=== PATIENT | female | born 1950 | race Caucasian/White ===

== ENCOUNTER 2017-02-28 08:09 | Inpatient (IN) | payer MEDICARE ==
[~2017-02-28] VITALS: Ht 154.9 cm; Wt 75.1 kg
[2017-02-28] MEDS ORDERED: PRIM50TA5 PO (08:56)
[2017-02-28] MEDS ORDERED: FLUO20CA4 PO (08:56)
[2017-02-28] MEDS ORDERED: ATEN25TA PO (08:56)
[2017-02-28] MEDS ORDERED: LOSA50TA PO (08:56)
[2017-02-28] MEDS ORDERED: ALPR0.25 PO (08:56)
[2017-02-28] MEDS ORDERED: MULT1TAB84 PO (09:00)
[2017-02-28] MEDS ORDERED: VITA10002 PO (09:00)
[2017-02-28] MEDS ORDERED: CALTTAB PO (09:00)
[2017-02-28] MEDS ORDERED: ACET-703 PO (09:01)
[2017-03-10] MEDS ORDERED: CHLORHEXIDINE GLUCONATE 4% SOLN 120 ML BTL TOPICAL SCH (08:30)
[2017-03-10] MEDS ORDERED: CHLORHEXIDINE GLUCONATE 2 % 1 PACK (2 CLOTHS) TOPICAL PRN (08:30)
[2017-03-10] MEDS ORDERED: POVIDONE IODINE 5% (ANTISEPSIS KIT) 4 APPLICATIONS EACH NARE PRN (08:30)
[2017-03-10] MEDS ORDERED: LACTATED RINGER'S 1000 ML IV PRN (08:30)
[2017-03-10] MEDS ORDERED: METOPROLOL TARTRATE 25 MG TAB PO PRN (08:30)
[2017-03-10] MEDS ORDERED: SODIUM CHLORID 0.9% 500 ML IV PRN (08:30)
[2017-03-10] MEDS ORDERED: INSULIN HUMAN REGULAR 1,000 UNITS/10 ML VIAL SQ PRN (08:30)
[2017-03-10] MEDS ORDERED: ceFAZolin 2 GM PREMIX 50 ML IV SCH (08:30)
[2017-03-10 08:49] VITALS: BP 165/87; PULSE 61; RESP 20; TEMP 98.3; O2SAT 98
[2017-03-10] MEDS ORDERED: SODIUM CHLORIDE 0.9% IV SCH ×2 (09:00→12:00)
[2017-03-10] MEDS ORDERED: TRANEXAMIC ACID IV SCH ×2 (09:00→12:00)
[2017-03-10] MEDS ORDERED: EXPAREL PERI-ARTICULAR INJECTION (TOTAL VOL. 100 ML) P-ARTICULR SCH ×2 (09:00)
[2017-03-10] MEDS ORDERED: LACTATED RINGER'S 1000 ML INJ 1,000 ML IV ONE (09:02)
[2017-03-10] MEDS ORDERED: PROPOFOL 200 MG/20 ML AMP IV ONE (09:02)
[2017-03-10] MEDS ORDERED: ONDANSETRON HCL 4 MG/2 ML VIAL IV PUSH ONE (09:02)
[2017-03-10] MEDS ORDERED: ZOLPIDEM TARTRATE 5 MG TAB PO PRN (10:00)
[2017-03-10] MEDS ORDERED: SODIUM CHLORIDE 0.9% FLUSH 5 ML FLUSH IVF PRN (10:00)
[2017-03-10] MEDS ORDERED: ACETAMINOPHEN/HYDROcodone 325 MG/7.5 MG TAB PO PRN (10:00)
[2017-03-10] MEDS ORDERED: Post-op Orders (for Pharmacy) MISC XX ONE (10:00)
[2017-03-10] MEDS ORDERED: MORPHINE SULFATE 4 MG/ML INJ IV PUSH PRN (10:00)
[2017-03-10] MEDS ORDERED: TRANEXAMIC ACID INJ 0 MG in SODIUM CHLORIDE 0.9% INJ 100 ML IV SCH (10:00)
[2017-03-10] MEDS ORDERED: MIDAZOLAM HCL 2 MG/2 ML VIAL ONE (10:01)
[2017-03-10] MEDS ORDERED: ACETAMINOPHEN 1000 MG/100 ML VIAL IV ONE (10:01)
[2017-03-10] MEDS ORDERED: DEXAMETHASONE SOD PHOS 4 MG/ML VIAL ONE (10:01)
[2017-03-10] MEDS ORDERED: FAMOTIDINE 20 MG/2 ML VIAL ONE (10:01)
[2017-03-10] MEDS ORDERED: GENTAMICIN SULFATE 80 MG/2 ML VIAL IRRIGATION ONE (11:26)
[2017-03-10] MEDS ORDERED: BUPIVACAINE HCL PF 0.5% 30 ML VIAL NERV BLOCK ONE (12:54)
[2017-03-10] MEDS ORDERED: DO NOT ADM ANY ANTICOAGULANT DRUGS PRN (13:21)
[2017-03-10] MEDS: LACTATED RINGER'S 1000 ML INJ 1,000 ML IV SCH ×2 (13:44→22:18)
--- NOTE | 2017-03-10 13:44 | RADRPT ---
EXAM DATE/TIME: 03/10/2017 14:29 [place] COMPARISON: No previous studies available for comparison. INDICATIONS : Post op knee surgery MEDICAL HISTORY : None. SURGICAL HISTORY : None. ENCOUNTER: Initial ACUITY: 1 day PAIN SCORE: Non-responsive. LOCATION: Left knee FINDINGS: Left total knee arthroplasty has been performed. The tibial and femoral components appear well seated . Surgical drains and subcutaneous emphysema identified. CONCLUSION: Postoperative changes are noted left total knee arthroplasty. Benji Wilson MD on March 10, 2017 at 13:42 Board Certified Radiologist. This report was verified electronically.
--- NOTE | 2017-03-10 13:59 | PD.CONS ---
HPI Service [facility] Consult Requested By Reason for Consult medical management Primary Care Physician José Bennett MD Diagnoses: History of Present Illness patient is a 66 y/o female with history osteoarthritis, hypertension and anxiety who underwent left total knee arthroplasty today. at the time of my evaluation she was resting comfortably with no distress. she was complaining of mild pain to the left knee- otherwise she denies any other complaints. Review of Systems Constitutional: DENIES: Fever, Weight loss, Chills, Night Sweats Eyes: DENIES: Blurred vision, Diplopia, Vision loss, Double Vision Ears, nose, mouth, throat: DENIES: Tinnitus, Vertigo, Throat pain, Epistaxis Respiratory: DENIES: Apneas, Cough, Snoring, Wheezing, Hemoptysis, Sputum production, Shortness of breath Cardiovascular: DENIES: Chest pain, Palpitations, Syncope, Dyspnea on Exertion , PND, Lower Extremity Edema, Orthopnea, Claudication Gastrointestinal: DENIES: Abdominal pain, Black stools, Bloody stools, Constipation, Diarrhea, Nausea, Vomiting, Difficulty Swallowing, Anorexia Genitourinary: DENIES: Urinary frequency, Urgency, Hematuria, Dysuria Musculoskeletal: COMPLAINS OF: Joint pain (left knee), DENIES: Muscle aches, Stiffness, Joint Swelling Integumentary: DENIES: Rash Neurologic: DENIES: Abnormal gait, Headache, Localized weakness, Paresthesias, Seizures, Speech Problems, Tremor, Poor Balance Psychiatric: DENIES: Anxiety, Confusion, Mood changes, Depression, Hallucinations, Agitation, Suicidal Ideation, Homicidal Ideation, Delusions Past Family Social History Allergies: Coded Allergies: Aspirin (Verified Allergy, Severe, VOMITING, 03/10/17) Macrobid (Verified Allergy, Severe, hallucinations, 03/10/17) HMG-CoA Reductase Inhibitors (Verified Adverse Reaction, Severe, MUSCLE PAIN, 03/10/17) Past Medical History hypertension osteoarthritis anxiety Past Surgical History arthroscopy back surgery cholecystectomy Reported Medications losartan atenolol fluxoetine primidone calcium/ vitamin D via. B12 Active Ordered Medications Current Medications Lactated Ringer's 1,000 ml @ 30 mls/hr Q24H PRN IV SEE LABEL COMMENTS Last administered on 03/10/17t 08:45; Start 03/10/17 at 08:30; Stop 03/13/17 at 08:29 Sodium Chloride (NS 500 ml Inj) 500 ml @ 30 mls/hr [id number] PRN IV SEE LABEL COMMENTS; Start 03/10/17 at 08:30; Stop 03/13/17 at 08:29 Metoprolol Tartrate (Lopressor) 25 mg RED HAT OPEN STACK ADMINISTRATOR PRN PO SEE LABEL COMMENTS; Start 03/10/17 at 08:30; Stop 03/13/17 at 08:29 Povidone Iodine (Betadine 5% Antisepsis Kit) 1 applic RED HAT OPEN STACK ADMINISTRATOR PRN EACH NARE SEE LABEL COMMENTS Last administered on 03/10/17 08:50; Start 03/10/17 at 08:30 ; Stop 03/13/17 at 08:29 Chlorhexidine Gluconate (Chlorhexidine 2% Cloth) 3 pack RED HAT OPEN STACK ADMINISTRATOR PRN TOPICAL SEE LABEL COMMENTS; Start 03/10/17 at 08:30; Stop 03/13/17 at 08:29 Insulin Human Regular (NovoLIN R INJ) See Protocol Table ... RED HAT OPEN STACK ADMINISTRATOR PRN SQ SEE PROTOCOL TABLE; Start 03/10/17 at 08:30; Stop 03/13/17 at 08:29 Chlorhexidine Gluconate 1 applic 1 applic ONCE TOPICAL Last administered on 08:30; Start 03/10/17 at 08:30; Stop 03/13/17 at 08:29 Cefazolin Sodium/ Dextrose 50 ml @ 100 mls/hr RED HAT OPEN STACK ADMINISTRATOR IV Last administered on 03/10/17 10:43; Start 03/10/17 at 08:30; Stop 03/13/17 at 08:29 Tranexamic Acid 751 mg/Sodium Chloride 107.51 ml @ 200 mls/ hr ONCE IV Last administered on 03/10/17 10:44; Start 03/10/17 at 09:00; Stop 03/10/17 at 12:00 ; Status DC Tranexamic Acid 751 mg/Sodium Chloride 107.51 ml @ 200 mls/ hr ONCE IV ; Start 03/10/17 at 12:00; Stop 03/10/17 at 18:00 Bupivacaine Liposome 20 ml/ Sodium Chloride 100 ml @ 200 mls/hr ONCE P- ARTICULR Last administered on 03/10/17 11:00; Start 03/10/17 at 09:00; Stop at 12:00; Status DC Lactated Ringer's (Lr 1000 ml Inj) 1,000 ml @ 80 mls/hr [id number] IV ; Start 09/16 at 09:48 IV Flush (NS Flush) 2 ml UNSCH PRN IVF FLUSH AFTER USING IV ACCESS; Start 03/10 at 10:00 IV Flush 2 ml 2 ml BID IVF ; Start 03/10/17 at 21:00 Cefazolin Sodium/ Sodium Chloride (Ancef Inj/NS Inj) 100 ml @ 200 mls/hr Q6H IV ; Start 03/10/17 at 16:00; Stop 03/11/17 at 04:29 Miscellaneous Information (Post-op Orders (for Pharmacy)) STAT ONCE XX ; Start 03/10/17 at 10:00; Stop 03/10/17 at 13:45; Status DC Rivaroxaban (Xarelto) 10 mg Q24H PO ; Start 03/11/17 at 12:15 Morphine Sulfate (Morphine Inj) 4 mg Q3H PRN IV PUSH BREAKTHROUGH PAIN; Start 03/10/17 at 10:00 Acetaminophen/ Hydrocodone Bitart ([place] 7.5-325 Mg) 1 tab Q4H PRN PO PAIN LESS THAN 5 ON SCALE; Start 03/10/17 at 10:00 Acetaminophen/ Hydrocodone Bitart ([place] 7.5-325 Mg) 2 tab Q4H PRN PO PAIN SCALE 5 TO 10; Start 03/10/17 at 10:00 Ketorolac Tromethamine 15 mg 15 mg Q6H IVP ; Start 03/10/17 at 10:00; Stop 03/12 at 04:01; Status UNV Tranexamic Acid/ Sodium Chloride (Cyklokapron Inj/ NS Inj) 100 ml @ 200 mls/hr UNSCH IV ; Start 03/10/17 at 10:00; Stop 03/10/17 at 10:09; Status DC Ondansetron HCl (Zofran Inj) 4 mg Q6H PRN IVP NAUSEA OR VOMITING; Start at 10:00 Docusate Sodium (Colace) 100 mg BID PO ; Start 03/11/17 at 21:00 Zolpidem Tartrate (Ambien) 5 mg HS PRN PO SLEEP; Start 03/10/17 at 10:00 Magnesium Hydroxide (Milk Of Magnesia Liq) 30 ml DAILY PRN PO CONSTIPATION; Start 03/10/17 at 10:00 Famotidine (Pepcid Inj) 20 mg STK-MED ONCE .ROUTE ; Start 03/10/17 at 10:01; Stop 03/10/17 at 10:02; Status DC Midazolam HCl (Versed Inj) 2 mg STK-MED ONCE .ROUTE ; Start 03/10/17 at 10:01; Stop 03/10/17 at 10:02; Status DC Dexamethasone Sodium Phosphate (Decadron Inj) 4 mg STK-MED ONCE .ROUTE ; Start 03/10/17 at 10:01; Stop 03/10/17 at 10:02; Status DC Acetaminophen (Ofirmev Inj) 1,000 mg STK-MED ONCE IV ; Start 03/10/17 at 10:01; Stop 03/10/17 at 10:02; Status DC Gentamicin Sulfate (Gentamicin Inj) 240 mg STK-MED ONCE IRRIGATION Last administered on 03/10/17t 11:26; Start 03/10/17 at 11:26; Stop 03/10/17 at 11:29 ; Status DC Family History not relevant to this consult. Social History smokes a few cigarettes a day- doesn't drink. Physical Exam Vital Signs Vital Signs Date Time Temp Pulse Resp B/P Pulse Ox O2 Delivery O2 Flow Rate FiO2 03/10/17 08:49 98.3 61 20 165/87 98 Physical Exam GENERAL: This is a well-nourished, well-developed patient, in no apparent distress. SKIN: No rashes, ecchymoses or lesions. Cool and dry. HEAD: Atraumatic. Normocephalic. No temporal or scalp tenderness. EYES: Pupils equal round and reactive. Extraocular motions intact. No scleral icterus. No injection or drainage. ENT: Nose without bleeding, purulent drainage or septal hematoma. Throat without erythema, tonsillar hypertrophy or exudate. Uvula midline. Airway patent. NECK: Trachea midline. No JVD or lymphadenopathy. Supple, nontender, no meningeal signs. CARDIOVASCULAR: Regular rate and rhythm without murmurs, gallops, or rubs. RESPIRATORY: Clear to auscultation. Breath sounds equal bilaterally. No wheezes , rales, or rhonchi. GASTROINTESTINAL: Abdomen soft, non-tender, nondistended. No hepato-splenomegaly , or palpable masses. No guarding. MUSCULOSKELETAL: left leg covered with clean dressing. NEUROLOGICAL: Awake and alert. Cranial nerves II through XII intact. Motor and sensory grossly within normal limits. Five out of 5 muscle strength in all muscle groups. Normal speech. Laboratory Laboratory Tests Test 03/10/17 08:36 Blood Type O POSITIVE Antibody Screen NEGATIVE Blood Bank Comment Assessment and Plan Assessment and Plan A/P - osteoarthritis- s/p left total knee arthroplasty continue with pain control and PT- management per ortho -hypertension; resume home meds- Vasotec as needed -anxiety; resume home meds -DVT prophylaxis with xarelto- per ortho thank you for the consult. Discussed Condition With the patient and RN. Flako Frye MD Mar 10, 2017 13:59
[2017-03-10] MEDS ORDERED: ENALAPRILAT 1.25 MG/ML VIAL IV PUSH PRN (14:00)
[2017-03-10] MEDS ORDERED: ALPRAZolam 0.25 MG TAB PO PRN (14:00)
[2017-03-10] MEDS: KETOROLAC TROMETHAMINE 30 MG/ML (IVP) VIAL IVP SCH ×2 (14:00→20:42)
[2017-03-10] MEDS: ACETAMINOPHEN/HYDROcodone 325 MG/7.5 MG TAB PO PRN ×2 (14:58→21:42)
[2017-03-10] MEDS ORDERED: PILL SPLITTER OTHER PRN (15:00)
[2017-03-10 15:05] VITALS: BP 188/91; PULSE 60; RESP 18; TEMP 96.1; O2SAT 94
[2017-03-10 15:55] VITALS: BP 154/72; PULSE 58
[2017-03-10] MEDS: ONDANSETRON HCL 4 MG/2 ML VIAL IVP PRN (17:23)
[2017-03-10 20:30] VITALS: BP 191/83; PULSE 63; RESP 17; TEMP 97.1; O2SAT 97
[2017-03-10] MEDS: LOSARTAN 50 MG TAB PO SCH (20:42)
[2017-03-10] MEDS: ATENOLOL 25 MG TAB PO SCH (20:42)
[2017-03-10] MEDS: SODIUM CHLORIDE 0.9% FLUSH 5 ML FLUSH IVF SCH (20:43)
[2017-03-10] MEDS: PRIMIDONE 50 MG TAB PO SCH (21:41)
--- NOTE | 2017-03-10 23:29 | HHI.FF ---
Face to Face Verification Diagnosis: (1) Status post total left knee replacement Physical Therapy Gait training Knee: Total knee, Protocol: Left, Gait training, Full weight bearing Left LE Weight Bearing: WB as tolerated Left LE Range of Motion: Active ROM (AROM, AAROM, PROM, PRE. ROM goal is 0 to 130 degrees. ROM in the OR was 0 to 140 degrees.) Nursing Nursing: Dressing changes Dressing Changes: Daily dressing change, Coverderm/Primapore Additional Instructions Remove steristrips on postop day 14. I have seen patient David Licea on 03/10/17. My clinical findings support the need for the requested home health care services because: Ltd mobility - disease progression Limited ability to care for self High risk of falls I certify that my clinical findings support that this patient is homebound because: Post-op weakness Unsteady gait/balance Unsafe to leave home unassisted January Marcos MD ([facility]) Mar 10, 2017 23:29
[2017-03-10 23:50] VITALS: BP 189/91
[2017-03-11] VITALS (7 sets, daily range): BP systolic 141–189; BP diastolic 65–79; PULSE 60–70; RESP 17–18; TEMP 97.2–99.5; O2SAT 93–97
[2017-03-11] MEDS: KETOROLAC TROMETHAMINE 30 MG/ML (IVP) VIAL IVP SCH ×4 (02:08→19:50)
--- NOTE | 2017-03-11 06:25 | PD.ORT.PN ---
Subjective Post Op Day #: 1 Subjective Remarks She is doing relatively well, but says that she cannot put weight on the left knee. Last night she reports pain and was given morphine. She says that it made her "dizzy". Range of Motion -14 to 95 degrees. Distance Walked 2 feet with PT. Objective Vitals Vital Signs Date Time Temp Pulse Resp B/P Pulse Ox O2 Delivery O2 Flow Rate FiO2 03/11/17 04:24 97.2 70 17 142/65 94 03/11/17 02:25 164/78 03/11/17 00:35 97.3 60 17 189/79 97 03/10/17 23:50 189/91 03/10/17 20:30 97.1 63 17 191/83 97 03/10/17 15:58 16 03/10/17 15:55 58 154/72 03/10/17 15:05 96.1 60 18 188/91 94 03/10/17 14:15 56 18 172/77 96 Room Air 03/10/17 14:00 53 18 163/84 96 Room Air 03/10/17 13:45 56 18 171/84 93 Room Air 03/10/17 13:30 58 18 164/88 95 Nasal Cannula 2 03/10/17 13:24 98.2 59 18 164/87 97 Nasal Cannula 4 03/10/17 08:49 98.3 61 20 165/87 98 I/O 03/10/17 03/10/17 03/10/17 03/11/17 03/11/17 03/11/17 07:00 15:00 23:00 07:00 15:00 23:00 Intake Total 240 ml Output Total 60 ml 30 ml Balance 180 ml -30 ml Intake Oral 240 ml Output Drainage Total 60 ml 30 ml # Voids 1 # Bowel Movements 0 Imaging Knee x-rays look good. Last 72 hours Impressions Knee X-Ray 03/10/17 0000 Signed Impressions: Service Date/Time: Friday, March 10, 2017 14:29 - CONCLUSION: Postoperative changes are noted left total knee arthroplasty. Benji Wilson MD Objective Remarks She is OOB in the chair. The dressing is dry and intact. The neurovascular status is intact. Assessment & Plan Ortho Post Op Day #: 1 Problem List: (1) Status post total left knee replacement Plan: Continue postop care and PT. Assessment and Plan Orthopaedically stable. Condition: Good. DVT prophylaxis: TEDs, sequentials, Xarelto. Discharge plans: Home with C. Has appointment. Rx: [place] 7.5/325. January Marcos MD ([facility]) Mar 11, 2017 06:25
[2017-03-11] MEDS ORDERED: HYDR-3580 PO (06:51)
[2017-03-11] MEDS ORDERED: XARE10TA PO (06:51)
[2017-03-11 07:59] LABS: HEMATOCRIT 33.7 % (35.0-46.0); REVIEW FLAG FINAL
[2017-03-11] MEDS: ALPRAZolam 0.25 MG TAB PO SCH (08:24)
[2017-03-11] MEDS: FLUoxetine HCL 20 MG CAP PO SCH (08:24)
[2017-03-11] MEDS: LOSARTAN 50 MG TAB PO SCH ×2 (08:24→19:51)
[2017-03-11] MEDS: ATENOLOL 25 MG TAB PO SCH ×2 (08:24→19:51)
[2017-03-11] MEDS: ACETAMINOPHEN/HYDROcodone 325 MG/7.5 MG TAB PO PRN ×2 (08:24→19:52)
[2017-03-11] MEDS: MAGNESIUM HYDROXIDE SUSP 30 ML CUP PO PRN (08:24)
[2017-03-11] MEDS: SODIUM CHLORIDE 0.9% FLUSH 5 ML FLUSH IVF SCH ×2 (08:25→19:51)
[2017-03-11] MEDS: NICOTINE 14 MG/24 HR PATCH T-DERMAL SCH (08:26)
[2017-03-11] MEDS: ONDANSETRON HCL 4 MG/2 ML VIAL IVP PRN (10:45)
--- NOTE | 2017-03-11 11:21 | HHI.PR ---
Subjective Remarks resting comfortably with no distress. afebrile. pain is fairly controlled. complaining of urinary frequency- with no dysuria. d/w the RN. Objective Vitals Vital Signs Date Time Temp Pulse Resp B/P Pulse Ox O2 Delivery O2 Flow Rate FiO2 03/11/17 08:00 98.3 62 18 165/72 96 03/11/17 04:24 97.2 70 17 142/65 94 03/11/17 02:25 164/78 03/11/17 00:35 97.3 60 17 189/79 97 03/10/17 23:50 189/91 03/10/17 20:30 97.1 63 17 191/83 97 03/10/17 15:58 16 03/10/17 15:55 58 154/72 03/10/17 15:05 96.1 60 18 188/91 94 03/10/17 14:15 56 18 172/77 96 Room Air 03/10/17 14:00 53 18 163/84 96 Room Air 03/10/17 13:45 56 18 171/84 93 Room Air 03/10/17 13:30 58 18 164/88 95 Nasal Cannula 2 03/10/17 13:24 98.2 59 18 164/87 97 Nasal Cannula 4 I/O 03/10/17 03/10/17 03/10/17 03/11/17 03/11/17 03/11/17 07:00 15:00 23:00 07:00 15:00 23:00 Intake Total 240 ml 120 ml Output Total 60 ml 30 ml Balance 180 ml 90 ml Intake Oral 240 ml 120 ml Output Drainage Total 60 ml 30 ml # Voids 1 3 # Bowel Movements 0 0 Result Diagram: 03/11/17 0651 Imaging Last Impressions Knee X-Ray 03/10/17 0000 Signed Impressions: Service Date/Time: Friday, March 10, 2017 14:29 - CONCLUSION: Postoperative changes are noted left total knee arthroplasty. Benji Wilson MD Objective Remarks GENERAL: This is a well-nourished, well-developed patient, in no apparent distress. CARDIOVASCULAR: Regular rate and regular rhythm without murmurs, gallops, or rubs. RESPIRATORY: Clear to auscultation. Breath sounds equal bilaterally. No wheezes , rales, or rhonchi. GASTROINTESTINAL: Abdomen soft, non-tender, nondistended. Normal, active bowel sounds MUSCULOSKELETAL: left knee covered with clean dressing. NEURO: Alert & Oriented x4 to person, place, time, situation. Moves all ext x4 Medications and IVs Current Medications Lactated Ringer's 1,000 ml @ 30 mls/hr Q24H PRN IV SEE LABEL COMMENTS Last administered on 03/10/17 08:45; Start 03/10/17 at 08:30; Stop 03/10/17 at 13:50 ; Status DC Sodium Chloride (NS 500 ml Inj) 500 ml @ 30 mls/hr [id number] PRN IV SEE LABEL COMMENTS; Start 03/10/17 at 08:30; Stop 03/10/17 at 13:50; Status DC Metoprolol Tartrate (Lopressor) 25 mg ASPHALT BLENDER PRN PO SEE LABEL COMMENTS; Start 03/10/17 at 08:30; Stop 03/10/17 at 13:50; Status DC Povidone Iodine (Betadine 5% Antisepsis Kit) 1 applic ASPHALT BLENDER PRN EACH NARE SEE LABEL COMMENTS Last administered on 03/10/17 08:50; Start 03/10/17 at 08:30 ; Stop 03/10/17 at 13:50; Status DC Chlorhexidine Gluconate (Chlorhexidine 2% Cloth) 3 pack ASPHALT BLENDER PRN TOPICAL SEE LABEL COMMENTS; Start 03/10/17 at 08:30; Stop 03/10/17 at 13:50; Status DC Insulin Human Regular (NovoLIN R INJ) See Protocol Table ... ASPHALT BLENDER PRN SQ SEE PROTOCOL TABLE; Start 03/10/17 at 08:30; Stop 03/10/17 at 13:50; Status DC Chlorhexidine Gluconate 1 applic 1 applic ONCE TOPICAL Last administered on 08:30; Start 03/10/17 at 08:30; Stop 03/10/17 at 13:50; Status DC Cefazolin Sodium/ Dextrose 50 ml @ 100 mls/hr ASPHALT BLENDER IV Last administered on 03/10/17 10:43; Start 03/10/17 at 08:30; Stop 03/10/17 at 13:47; Status DC Tranexamic Acid 751 mg/Sodium Chloride 107.51 ml @ 200 mls/ hr ONCE IV Last administered on 03/10/17 10:44; Start 03/10/17 at 09:00; Stop 03/10/17 at 12:00 ; Status DC Tranexamic Acid 751 mg/Sodium Chloride 107.51 ml @ 200 mls/ hr ONCE IV Last administered on 03/10/17 13:45; Start 03/10/17 at 12:00; Stop 03/10/17 at 18:00 ; Status DC Bupivacaine Liposome 20 ml/ Sodium Chloride 100 ml @ 200 mls/hr ONCE P- ARTICULR Last administered on 03/10/17 11:00; Start 03/10/17 at 09:00; Stop at 12:00; Status DC Lactated Ringer's (Lr 1000 ml Inj) 1,000 ml @ 80 mls/hr [id number] IV Last administered on 03/10/17 13:44; Start 03/10/17 at 09:48 IV Flush (NS Flush) 2 ml UNSCH PRN IVF FLUSH AFTER USING IV ACCESS; Start 03/10 at 10:00 IV Flush 2 ml 2 ml BID IVF Last administered on 03/11/17 08:25; Start at 21:00 Cefazolin Sodium/ Sodium Chloride (Ancef Inj/NS Inj) 100 ml @ 200 mls/hr Q6H IV Last administered on 03/11/17 04:34; Start 03/10/17 at 16:00; Stop at 04:29; Status DC Miscellaneous Information (Post-op Orders (for Pharmacy)) STAT ONCE XX ; Start 03/10/17 at 10:00; Stop 03/10/17 at 13:45; Status DC Rivaroxaban (Xarelto) 10 mg Q24H PO ; Start 03/11/17 at 12:15 Morphine Sulfate (Morphine Inj) 4 mg Q3H PRN IV PUSH BREAKTHROUGH PAIN Last administered on 03/11/17 01:10; Start 03/10/17 at 10:00 Acetaminophen/ Hydrocodone Bitart ([place] 7.5-325 Mg) 1 tab Q4H PRN PO PAIN LESS THAN 5 ON SCALE; Start 03/10/17 at 10:00 Acetaminophen/ Hydrocodone Bitart ([place] 7.5-325 Mg) 2 tab Q4H PRN PO PAIN SCALE 5 TO 10 Last administered on 03/11/17 08:24; Start 03/10/17 at 10:00 Ketorolac Tromethamine 15 mg 15 mg Q6H IVP Last administered on 03/11/17 08:24 ; Start 03/10/17 at 14:00; Stop 03/12/17 at 08:01 Tranexamic Acid/ Sodium Chloride (Cyklokapron Inj/ NS Inj) 100 ml @ 200 mls/hr UNSCH IV ; Start 03/10/17 at 10:00; Stop 03/10/17 at 10:09; Status DC Ondansetron HCl (Zofran Inj) 4 mg Q6H PRN IVP NAUSEA OR VOMITING Last administered on 03/11/17 10:45; Start 03/10/17 at 10:00 Docusate Sodium (Colace) 100 mg BID PO ; Start 03/11/17 at 21:00 Zolpidem Tartrate (Ambien) 5 mg HS PRN PO SLEEP; Start 03/10/17 at 10:00 Magnesium Hydroxide (Milk Of Magnesia Liq) 30 ml DAILY PRN PO CONSTIPATION Last administered on 03/11/17 08:24; Start 03/10/17 at 10:00 Famotidine (Pepcid Inj) 20 mg STK-MED ONCE .ROUTE ; Start 03/10/17 at 10:01; Stop 03/10/17 at 10:02; Status DC Midazolam HCl (Versed Inj) 2 mg STK-MED ONCE .ROUTE ; Start 03/10/17 at 10:01; Stop 03/10/17 at 10:02; Status DC Dexamethasone Sodium Phosphate (Decadron Inj) 4 mg STK-MED ONCE .ROUTE ; Start 03/10/17 at 10:01; Stop 03/10/17 at 10:02; Status DC Acetaminophen (Ofirmev Inj) 1,000 mg STK-MED ONCE IV ; Start 03/10/17 at 10:01; Stop 03/10/17 at 10:02; Status DC Gentamicin Sulfate (Gentamicin Inj) 240 mg STK-MED ONCE IRRIGATION Last administered on 03/10/17 11:26; Start 03/10/17 at 11:26; Stop 03/10/17 at 11:29 ; Status DC Alprazolam (Xanax) 0.125 mg DAILY PO Last administered on 03/11/17 08:24; Start 03/11/17 at 09:00 Atenolol (Tenormin) 25 mg BID PO Last administered on 03/11/17 08:24; Start at 21:00 Fluoxetine HCl (PROzac) 20 mg DAILY PO Last administered on 03/11/17 08:24; Start 03/11/17 at 09:00 Losartan Potassium (Cozaar) 50 mg BID PO Last administered on 03/11/17 08:24; Start 03/10/17 at 21:00 Primidone (Mysoline) 50 mg HS PO Last administered on 03/10/17 21:41; Start at 21:00 Enalaprilat (Vasotec Inj) 1.25 mg Q8H PRN IV PUSH SBP> OR = 180, DBP> OR = 100 Last administered on 03/10/17 23:56; Start 03/10/17 at 14:00 Alprazolam (Xanax) 0.125 mg Q8HR PRN PO ANXIETY; Start 03/10/17 at 14:00 Miscellaneous (Pill Splitter) 1 ea UNSCH PRN OTHER SEE LABEL COMMENTS; Start at 15:00 Miscellaneous Information ALL NURSING DEPARTME... UNSCH PRN .XX SEE LABEL COMMENTS; Start 03/10/17 at 13:21; Stop 03/11/17 at 13:20 Nicotine (Habitrol 14 Mg Patch.24 Hr) 1 patch DAILY T-DERMAL ; Start 03/11/17 at 09:00 Miscellaneous Information 1 HS T-DERMAL ; Start 03/11/17 at 21:00 A/P Assessment and Plan A/P - osteoarthritis- s/p left total knee arthroplasty continue with pain control and PT- management per ortho -hypertension; resumed home meds- Vasotec as needed will continue to monitor- will consider adding procardia if BP remains elevated. -urinary frequency; will check UA -anxiety; resumed home meds -DVT prophylaxis with xarelto- per ortho Flako Frye MD Mar 11, 2017 11:21
[2017-03-11] MEDS: RIVAROXABAN 10 MG TAB PO SCH (12:58)
[2017-03-11 15:44] LABS: BACTERIA, URINE RARE /hpf; BLOOD, URINE NEG (NEG); CALCIUM OXALATE CRYSTALS,URINE OCC /hpf; COMMENT (UR) CULT NOT INDICATED; CULTURE IF INDICATED CULT NOT INDICATED; GLUCOSE,URINE NEG (NEG); HYALINE CAST, URINE 6 /lpf (RARE); KETONE, URINE TRACE mg/dL (NEG); MUCUS URINE MOD /lpf (OCC); NITRITE,URINE NEG (NEG); SQUAMOUS EPITHELIAL CELL URINE 3 /hpf (0-5); URINE COLOR YELLOW (YELLW/STRAW)
--- NOTE | 2017-03-11 19:47 | MP ---
cc: Serge PACHECO. DATE OF SURGERY 03/10/2017 PREOPERATIVE DIAGNOSIS Primary osteoarthritis, left knee. POSTOPERATIVE DIAGNOSIS Primary osteoarthritis, left knee. OPERATION PERFORMED Left total knee arthroplasty with Gilbert Triathlon prosthesis (uncemented). SURGEON January Pacheco MD ABSTRACT CHECKER DALI Ruffin ANESTHESIA Spinal with supplemental adductor canal block and local. INDICATIONS AND FINDINGS This 66-year-old woman has had left knee pain for two and a half years. Her ambulation tolerance is less than a few feet because of the pain. She has stiffness and pain on motion. She has difficulty standing from a seated position and vice versa. She has giving-way, pain and swelling. Treatment has included anti-inflammatory agents, analgesics, exercises, intra-articular corticosteroids and ambulatory aids without improvement to an adequate level. Physical findings showed significant medial laxity with crepitation on motion and tenderness in the medial compartment especially. X-rays showed significant osteoarthritis in the knee going to [id number] in the medial compartment with osteophytes tricompartmentally. Operative findings were consistent with the radiographic findings with there being tricompartmental osteoarthritis predominantly in the medial compartment and large osteophytes and eburnation. There is also some synovial proliferation. The prosthesis used was a Gilbert Triathlon prosthesis. The femur was a size 5 left, cruciate-retaining uncemented. The tibia was a Tritanium baseplate, size 5 with a 9 mm cruciate retaining insert of X3 polyethylene. The patella was a Tritanium backed asymmetric patella size 35 mm. The range of motion on the operating table was 0 degrees extension to 140 degrees of flexion with excellent stability throughout the entire range. PROCEDURE The patient was brought to the clean-air operating suite and a spinal anesthetic was administered by Dr. Washington. Following this he performed an adductor canal block. The patient received prophylactic antibiotics in the form of Ancef and also received tranexamic acid prior to initiation of surgery. The pneumatic tourniquet was applied to the left leg. The patient was placed in a supine position with a small bolster under the left hip. The left leg was then prepped with alcohol, Hibiclens and Chloraprep and draped in the usual manner with the knee draped free. An appropriate time-out procedure was carried out. Local anesthesia was administered via the incision site prior to making the incision. The incision was then made from about three fingerbreadths above the superior medial pole of the patella down to the tibial tubercle on the medial side. The incision was deepened through the subcutaneous tissues to the retinacular structures which were exposed medially and laterally. The medial retinacular incision was made from the superior medial pole of the patella down to the tibial tubercle and up into the quadriceps tendon splitting it longitudinally in the medial one-third. The patella was reflected. Medial and lateral dissection was carried out. The infrapatellar fat pad was debulked. The posterior surface of the patella was excised with the oscillating saw taking care to prevent injury to the tendinous structures. A patella protector was applied. The patella was then dropped into the lateral gutter. A plica was identified and sectioned. Attention was then directed to the femur. Medial and lateral dissection was carried out in the joint initiating meniscectomies medially and laterally. A fenestration was made in the distal end of the femur and the proximal end of the tibia for intermedullary referencing guides. Distal femoral cutting guide and jig were then assembled for 5 degrees 8-mm cut and positioned in place. Distal femoral cutting guide was stabilized with pins. The jig was removed. The distal femoral cut was completed with the oscillating saw. The sizing guide was then positioned in place. This was stabilized with pins. This was positioned in line with the white size line and the epicondylar axis. The size femur appeared to be appropriate for a size 5. A 4 in 1 cutting block was positioned in place and stabilized with pins. Anterior and posterior cuts were made followed by posterior and anterior chamfer cuts. Osteophytes were trimmed. The remainder of the medial and lateral meniscectomies were completed. The proximal tibial cutting guide and jig was then assembled and positioned in place. This was then stabilized with pin for rotation purposes. The depth of cut was verified off of the lateral side, resecting 9 mm. Cutting block was stabilized with pins. Jig was removed. The proximal tibial cut was completed with the oscillating saw. This did not appear satisfactory, therefore, an additional 2 mm was resected. Osteophytes were trimmed from the posterior aspect of the femur. Local anesthesia was administered throughout the posterior aspect of the knee at this time. Trial prosthesis were then assembled. The size 5 femur and size 5 tibia appeared to be appropriate. After femoral component was impacted onto the femur the alignment was checked with the tibia. This tibial guide was stabilized with pins. The patella drill holes were made through the guide. A trial patella was positioned in place, size 35. The knee was taken through a range of motion which showed slight lateral tracking of the patella. Lateral release was then carried out which allowed for slight improvement in the mobilization of the patella. The range of motion was 0 degrees extension to 140 degrees of flexion with excellent stability and appropriate patella tracking. The femoral drill holes were made. The patella and femoral trials were removed. The tibial spacer was removed. The tibial punch was impacted through its guide and removed. The tibial baseplate was removed. The tibial drill guide was positioned in place and drill holes made. The cut ends of bone were cleaned with pulse lavage. The tibial baseplate size 5 Tritanium was impacted into place and seated appropriately. The 9-mm cruciate-retaining spacer of X3 polyethylene was impacted into place and seated appropriately. The femoral cut surface was cleaned with pulse lavage. The femoral component also a size 5 Press-Fit was impacted into place and seated appropriately. The 35 mm patella was Tritanium backed was placed into position on the patella and the patella vice was used to tighten this. The range of motion after placement of the prosthesis was 0 degrees extension to 140 degrees of flexion with excellent stability and excellent patellar tracking. The remainder of the Exparel was injected throughout the knee. Drains were brought out the superolateral aspect of the suprapatellar pouch. Wound closure then commenced using 0 Vicryl interrupted [id number] sutures for the retinacular structures and capsular structures, 2-0 Vicryl interrupted simple sutures with buried knots for the subcutaneous tissues and 4-0 Monocryl continuous subcuticular closure for the skin. The wound was then dressed with Steri-Strips, 4x4s, sterile Sof-Rol, cooling pad, further sterile Sof-Rol and Jadiel bandage from the base of the toes to midthigh. The patient was transferred from the operating room to the recovery room in satisfactory condition having tolerated the procedure well. Counts were correct. Specimens none. Estimated blood loss 350 mL. MD YESENIA Ernst/MAY /1:09 PM /7:21 PM
[2017-03-11] MEDS: PRIMIDONE 50 MG TAB PO SCH (19:51)
[2017-03-11] MEDS: REMOVE OLD NICODERM (NICOTINE) PATCH T-DERMAL SCH (19:51)
[2017-03-11] MEDS: DOCUSATE SODIUM 100 MG CAP PO SCH (19:51)
[2017-03-11] MEDS: LACTATED RINGER'S 1000 ML INJ 1,000 ML IV SCH (22:23)
[2017-03-12] VITALS (9 sets, daily range): BP systolic 132–188; BP diastolic 64–78; PULSE 55–78; RESP 16–20; TEMP 97.2–99.9; O2SAT 93–98
[2017-03-12] MEDS: KETOROLAC TROMETHAMINE 30 MG/ML (IVP) VIAL IVP SCH ×2 (02:48→08:48)
[2017-03-12] MEDS: ACETAMINOPHEN/HYDROcodone 325 MG/7.5 MG TAB PO PRN ×2 (03:45→08:40)
[2017-03-12] MEDS: MAGNESIUM HYDROXIDE SUSP 30 ML CUP PO PRN (03:45)
--- NOTE | 2017-03-12 06:36 | PD.ORT.PN ---
Subjective Post Op Day #: 2 Subjective Remarks She is doing relatively well. She is somewhat concerned about mobility. She has not walked much. Range of Motion 0 to 84 degrees. Distance Walked 2 feet, limited by "dizziness and nausea". Objective Vitals Vital Signs Date Time Temp Pulse Resp B/P Pulse Ox O2 Delivery O2 Flow Rate FiO2 03/12/17 04:30 99.9 67 17 165/66 95 03/12/17 00:30 97.6 68 17 147/74 95 03/11/17 20:30 99.5 68 17 159/74 96 03/11/17 16:05 16 03/11/17 16:00 98.4 70 18 141/67 95 03/11/17 12:00 97.2 64 18 158/72 93 03/11/17 08:00 98.3 62 18 165/72 96 I/O 03/11/17 03/11/17 03/11/17 03/12/17 03/12/17 03/12/17 07:00 15:00 23:00 07:00 15:00 23:00 Intake Total 120 ml 600 ml Output Total 30 ml 105 ml 10 ml Balance 90 ml 495 ml -10 ml Intake Oral 120 ml 600 ml Output Drainage Total 30 ml 105 ml 10 ml # Voids 3 4 # Bowel Movements 0 0 Result Diagram: 03/11/17 0651 Imaging Knee x-rays look good. Last 72 hours Impressions Knee X-Ray 03/10/17 0000 Signed Impressions: Service Date/Time: Friday, March 10, 2017 14:29 - CONCLUSION: Postoperative changes are noted left total knee arthroplasty. Benji Wilson MD Objective Remarks She is OOB in the chair. The dressing is dry and intact. The neurovascular status is intact. Assessment & Plan Ortho Post Op Day #: 2 Problem List: (1) Status post total left knee replacement Plan: Continue postop care and PT. Assessment and Plan Orthopaedically stable. Condition: Good. DVT prophylaxis: TEDs, sequentials, Xarelto. Discharge plans: Home with [facility]. Has appointment. Rx: [place] 7.5/325. January Marcos MD (Charles) Mar 12, 2017 06:36 January Marcos MD (Charles) Mar 12, 2017 06:36
[2017-03-12 07:11] LABS: HEMATOCRIT 30.6 % (35.0-46.0); REVIEW FLAG FINAL
[2017-03-12] MEDS: DOCUSATE SODIUM 100 MG CAP PO SCH ×2 (08:38→21:20)
[2017-03-12] MEDS: NICOTINE 14 MG/24 HR PATCH T-DERMAL SCH (08:38)
[2017-03-12] MEDS: ATENOLOL 25 MG TAB PO SCH ×2 (08:39→21:20)
[2017-03-12] MEDS: ALPRAZolam 0.25 MG TAB PO SCH (08:39)
[2017-03-12] MEDS: LOSARTAN 50 MG TAB PO SCH ×2 (08:39→21:19)
[2017-03-12] MEDS: FLUoxetine HCL 20 MG CAP PO SCH (08:39)
[2017-03-12] MEDS: SODIUM CHLORIDE 0.9% FLUSH 5 ML FLUSH IVF SCH ×2 (08:40→21:00)
--- NOTE | 2017-03-12 11:26 | HHI.PR ---
Subjective Remarks in no distress. pain is controlled. Objective Vitals Vital Signs Date Time Temp Pulse Resp B/P Pulse Ox O2 Delivery O2 Flow Rate FiO2 03/12/17 08:20 97.2 65 16 153/72 93 03/12/17 04:30 99.9 67 17 165/66 95 03/12/17 00:30 97.6 68 17 147/74 95 03/11/17 20:30 99.5 68 17 159/74 96 03/11/17 16:05 16 03/11/17 16:00 98.4 70 18 141/67 95 03/11/17 12:00 97.2 64 18 158/72 93 I/O 03/11/17 03/11/17 03/11/17 03/12/17 03/12/17 03/12/17 07:00 15:00 23:00 07:00 15:00 23:00 Intake Total 120 ml 600 ml 240 ml Output Total 30 ml 105 ml 10 ml Balance 90 ml 495 ml 230 ml Intake Oral 120 ml 600 ml 240 ml Output Drainage Total 30 ml 105 ml 10 ml # Voids 3 4 2 # Bowel Movements 0 0 0 Result Diagram: 03/12/17 0633 Imaging Last Impressions Knee X-Ray 03/10/17 0000 Signed Impressions: Service Date/Time: Friday, March 10, 2017 14:29 - CONCLUSION: Postoperative changes are noted left total knee arthroplasty. Benji Wilson MD Objective Remarks GENERAL: This is a well-nourished, well-developed patient, in no apparent distress. CARDIOVASCULAR: Regular rate and regular rhythm without murmurs, gallops, or rubs. RESPIRATORY: Clear to auscultation. Breath sounds equal bilaterally. No wheezes , rales, or rhonchi. GASTROINTESTINAL: Abdomen soft, non-tender, nondistended. Normal, active bowel sounds MUSCULOSKELETAL: left knee covered with clean dressing. NEURO: Alert & Oriented x4 to person, place, time, situation. Moves all ext x4 Medications and IVs Current Medications Lactated Ringer's 1,000 ml @ 30 mls/hr Q24H PRN IV SEE LABEL COMMENTS Last administered on 03/10/17t 08:45; Start 03/10/17 at 08:30; Stop 03/10/17 at 13:50 ; Status DC Sodium Chloride (NS 500 ml Inj) 500 ml @ 30 mls/hr [id number] PRN IV SEE LABEL COMMENTS; Start 03/10/17 at 08:30; Stop 03/10/17 at 13:50; Status DC Metoprolol Tartrate (Lopressor) 25 mg CELERY TIER PRN PO SEE LABEL COMMENTS; Start 03/10/17 at 08:30; Stop 03/10/17 at 13:50; Status DC Povidone Iodine (Betadine 5% Antisepsis Kit) 1 applic CELERY TIER PRN EACH NARE SEE LABEL COMMENTS Last administered on 03/10/17 08:50; Start 03/10/17 at 08:30 ; Stop 03/10/17 at 13:50; Status DC Chlorhexidine Gluconate (Chlorhexidine 2% Cloth) 3 pack CELERY TIER PRN TOPICAL SEE LABEL COMMENTS; Start 03/10/17 at 08:30; Stop 03/10/17 at 13:50; Status DC Insulin Human Regular (NovoLIN R INJ) See Protocol Table ... CELERY TIER PRN SQ SEE PROTOCOL TABLE; Start 03/10/17 at 08:30; Stop 03/10/17 at 13:50; Status DC Chlorhexidine Gluconate 1 applic 1 applic ONCE TOPICAL Last administered on 08:30; Start 03/10/17 at 08:30; Stop 03/10/17 at 13:50; Status DC Cefazolin Sodium/ Dextrose 50 ml @ 100 mls/hr CELERY TIER IV Last administered on 03/10/17 10:43; Start 03/10/17 at 08:30; Stop 03/10/17 at 13:47; Status DC Tranexamic Acid 751 mg/Sodium Chloride 107.51 ml @ 200 mls/ hr ONCE IV Last administered on 03/10/17 10:44; Start 03/10/17 at 09:00; Stop 03/10/17 at 12:00 ; Status DC Tranexamic Acid 751 mg/Sodium Chloride 107.51 ml @ 200 mls/ hr ONCE IV Last administered on 03/10/17 13:45; Start 03/10/17 at 12:00; Stop 03/10/17 at 18:00 ; Status DC Bupivacaine Liposome 20 ml/ Sodium Chloride 100 ml @ 200 mls/hr ONCE P- ARTICULR Last administered on 03/10/17 11:00; Start 03/10/17 at 09:00; Stop at 12:00; Status DC Lactated Ringer's (Lr 1000 ml Inj) 1,000 ml @ 80 mls/hr [id number] IV Last administered on 03/10/17 13:44; Start 03/10/17 at 09:48 IV Flush (NS Flush) 2 ml UNSCH PRN IVF FLUSH AFTER USING IV ACCESS; Start 03/10 at 10:00 IV Flush 2 ml 2 ml BID IVF Last administered on 03/12/17 08:40; Start at 21:00 Cefazolin Sodium/ Sodium Chloride (Ancef Inj/NS Inj) 100 ml @ 200 mls/hr Q6H IV Last administered on 03/11/17 04:34; Start 03/10/17 at 16:00; Stop at 04:29; Status DC Miscellaneous Information (Post-op Orders (for Pharmacy)) STAT ONCE XX ; Start 03/10/17 at 10:00; Stop 03/10/17 at 13:45; Status DC Rivaroxaban (Xarelto) 10 mg Q24H PO Last administered on 03/11/17 12:58; Start 03/11/17 at 12:15 Morphine Sulfate (Morphine Inj) 4 mg Q3H PRN IV PUSH BREAKTHROUGH PAIN Last administered on 03/11/17 01:10; Start 03/10/17 at 10:00 Acetaminophen/ Hydrocodone Bitart ([place] 7.5-325 Mg) 1 tab Q4H PRN PO PAIN LESS THAN 5 ON SCALE; Start 03/10/17 at 10:00 Acetaminophen/ Hydrocodone Bitart ([place] 7.5-325 Mg) 2 tab Q4H PRN PO PAIN SCALE 5 TO 10 Last administered on 03/12/17 08:40; Start 03/10/17 at 10:00 Ketorolac Tromethamine 15 mg 15 mg Q6H IVP Last administered on 03/12/17 08:48 ; Start 03/10/17 at 14:00; Stop 03/12/17 at 08:01; Status DC Tranexamic Acid/ Sodium Chloride (Cyklokapron Inj/ NS Inj) 100 ml @ 200 mls/hr UNSCH IV ; Start 03/10/17 at 10:00; Stop 03/10/17 at 10:09; Status DC Ondansetron HCl (Zofran Inj) 4 mg Q6H PRN IVP NAUSEA OR VOMITING Last administered on 03/11/17 10:45; Start 03/10/17 at 10:00 Docusate Sodium (Colace) 100 mg BID PO Last administered on 03/12/17 08:38; Start 03/11/17 at 21:00 Zolpidem Tartrate (Ambien) 5 mg HS PRN PO SLEEP; Start 03/10/17 at 10:00 Magnesium Hydroxide (Milk Of Magnesia Liq) 30 ml DAILY PRN PO CONSTIPATION Last administered on 03/12/17 03:45; Start 03/10/17 at 10:00 Famotidine (Pepcid Inj) 20 mg STK-MED ONCE .ROUTE ; Start 03/10/17 at 10:01; Stop 03/10/17 at 10:02; Status DC Midazolam HCl (Versed Inj) 2 mg STK-MED ONCE .ROUTE ; Start 03/10/17 at 10:01; Stop 03/10/17 at 10:02; Status DC Dexamethasone Sodium Phosphate (Decadron Inj) 4 mg STK-MED ONCE .ROUTE ; Start 03/10/17 at 10:01; Stop 03/10/17 at 10:02; Status DC Acetaminophen (Ofirmev Inj) 1,000 mg STK-MED ONCE IV ; Start 03/10/17 at 10:01; Stop 03/10/17 at 10:02; Status DC Gentamicin Sulfate (Gentamicin Inj) 240 mg STK-MED ONCE IRRIGATION Last administered on 03/10/17 11:26; Start 03/10/17 at 11:26; Stop 03/10/17 at 11:29 ; Status DC Alprazolam (Xanax) 0.125 mg DAILY PO Last administered on 03/12/17 08:39; Start 03/11/17 at 09:00 Atenolol (Tenormin) 25 mg BID PO Last administered on 03/12/17 08:39; Start at 21:00 Fluoxetine HCl (PROzac) 20 mg DAILY PO Last administered on 03/12/17 08:39; Start 03/11/17 at 09:00 Losartan Potassium (Cozaar) 50 mg BID PO Last administered on 03/12/17 08:39; Start 03/10/17 at 21:00 Primidone (Mysoline) 50 mg HS PO Last administered on 03/11/17 19:51; Start at 21:00 Enalaprilat (Vasotec Inj) 1.25 mg Q8H PRN IV PUSH SBP> OR = 180, DBP> OR = 100 Last administered on 03/10/17 23:56; Start 03/10/17 at 14:00 Alprazolam (Xanax) 0.125 mg Q8HR PRN PO ANXIETY; Start 03/10/17 at 14:00 Miscellaneous (Pill Splitter) 1 ea UNSCH PRN OTHER SEE LABEL COMMENTS; Start at 15:00 Miscellaneous Information ALL NURSING DEPARTME... UNSCH PRN .XX SEE LABEL COMMENTS; Start 03/10/17 at 13:21; Stop 03/11/17 at 13:20; Status DC Nicotine (Habitrol 14 Mg Patch.24 Hr) 1 patch DAILY T-DERMAL ; Start 03/11/17 at 09:00 Miscellaneous Information 1 HS T-DERMAL Last administered on 03/11/17 19:51; Start 03/11/17 at 21:00 A/P Assessment and Plan A/P - osteoarthritis- s/p left total knee arthroplasty continue with pain control and PT- management per ortho -hypertension; resumed home meds- Vasotec as needed -urinary frequency;UA not impressive -anxiety; resumed home meds -DVT prophylaxis with xarelto- per ortho Discharge Planning dc planning per ortho. Flako Frye MD Mar 12, 2017 11:26
[2017-03-12] MEDS: LACTATED RINGER'S 1000 ML INJ 1,000 ML IV SCH (11:48)
[2017-03-12] MEDS: ONDANSETRON HCL 4 MG/2 ML VIAL IVP PRN (11:51)
[2017-03-12] MEDS: RIVAROXABAN 10 MG TAB PO SCH (11:51)
[2017-03-12] MEDS: traMADol HCL 50 MG TAB PO PRN (20:05)
[2017-03-12] MEDS: REMOVE OLD NICODERM (NICOTINE) PATCH T-DERMAL SCH (21:00)
[2017-03-12] MEDS: PRIMIDONE 50 MG TAB PO SCH (21:19)
[2017-03-13] MEDS: LACTATED RINGER'S 1000 ML INJ 1,000 ML IV SCH ×2 (00:18→12:48)
[2017-03-13] MEDS: traMADol HCL 50 MG TAB PO PRN ×3 (00:49→09:55)
[2017-03-13 01:48] VITALS: BP 178/78; PULSE 75; RESP 17; TEMP 98.1; O2SAT 95
[2017-03-13 05:48] VITALS: BP 168/75; PULSE 72; RESP 16; TEMP 98.9; O2SAT 95
--- NOTE | 2017-03-13 07:20 | PD.ORT.PN ---
Subjective Post Op Day #: 3 Subjective Remarks She is still doing relatively well. She has walked much with PT and nurses. Last night she was not using the walker correctly and slid to the floor in a controlled manner. there was no apparent injury, Range of Motion 0 to 90 degrees. Distance Walked 75 feet with PT. Objective Vitals Vital Signs Date Time Temp Pulse Resp B/P Pulse Ox O2 Delivery O2 Flow Rate FiO2 03/13/17 05:48 98.9 72 16 168/75 95 03/13/17 01:48 98.1 75 17 178/78 95 03/12/17 21:48 98.8 74 16 167/69 95 03/12/17 20:48 99.8 73 18 166/65 97 03/12/17 19:48 97.7 77 153/66 95 03/12/17 19:20 99.1 78 16 188/78 97 03/12/17 16:00 98.3 67 20 141/64 98 03/12/17 11:42 97.7 55 16 132/66 94 03/12/17 08:20 97.2 65 16 153/72 93 I/O 03/12/17 03/12/17 03/12/17 03/13/17 03/13/17 03/13/17 07:00 15:00 23:00 07:00 15:00 23:00 Intake Total 240 ml 240 ml 240 ml Output Total 10 ml Balance 230 ml 240 ml 240 ml Intake Oral 240 ml 240 ml 240 ml Output Drainage Total 10 ml # Voids 2 3 2 # Bowel Movements 0 0 0 Result Diagram: 03/12/17 0633 Imaging Knee x-rays look good. Last 72 hours Impressions Knee X-Ray 03/10/17 0000 Signed Impressions: Service Date/Time: Friday, March 10, 2017 14:29 - CONCLUSION: Postoperative changes are noted left total knee arthroplasty. Benji Wilson MD Objective Remarks She is OOB in the chair. The dressing is dry and intact except for a 10 mm diameter bloody spot at the distal 1/3 junction. There is no erythema or induration. The neurovascular status is intact. Assessment & Plan Ortho Post Op Day #: 3 Problem List: (1) Status post total left knee replacement Plan: Continue postop care and PT. Assessment and Plan Orthopaedically stable. Condition: Good. DVT prophylaxis: TEDs, sequentials, Xarelto. Discharge plans: Home with [facility], after second PT session today. Has appointment. Rx: Tramadol, changed from [place] because reaction. Patient has been cautioned to listen to therapist and other medical personnel and follow directions. She needs to use the walker correctly until a therapist graduates her to a cane or beyond. January Marcos MD (Charles) Mar 13, 2017 07:20
[2017-03-13] MEDS ORDERED: ULTR50TA5 PO (07:55)
[2017-03-13 08:30] VITALS: BP 161/71; PULSE 64; RESP 20; TEMP 98.4; O2SAT 97
[2017-03-13] MEDS: SODIUM CHLORIDE 0.9% FLUSH 5 ML FLUSH IVF SCH (09:00)
[2017-03-13] MEDS: NICOTINE 14 MG/24 HR PATCH T-DERMAL SCH (09:00)
[2017-03-13] MEDS: ATENOLOL 25 MG TAB PO SCH (09:22)
[2017-03-13] MEDS: ALPRAZolam 0.25 MG TAB PO SCH (09:22)
[2017-03-13] MEDS: LOSARTAN 50 MG TAB PO SCH (09:22)
[2017-03-13] MEDS: FLUoxetine HCL 20 MG CAP PO SCH (09:22)
[2017-03-13] MEDS: DOCUSATE SODIUM 100 MG CAP PO SCH (09:22)
[2017-03-13 09:48] VITALS: BP 145/66; PULSE 69; RESP 20; TEMP 97.6; O2SAT 99
--- NOTE | 2017-03-13 11:04 | HHI.PR ---
Subjective Remarks resting comfortably with no distress. pain is mild. d/w the RN and no acute issues over night. Objective Vitals Vital Signs Date Time Temp Pulse Resp B/P Pulse Ox O2 Delivery O2 Flow Rate FiO2 03/13/17 09:48 97.6 69 20 145/66 99 03/13/17 08:30 98.4 64 20 161/71 97 03/13/17 05:48 98.9 72 16 168/75 95 03/13/17 01:48 98.1 75 17 178/78 95 03/12/17 21:48 98.8 74 16 167/69 95 03/12/17 20:48 99.8 73 18 166/65 97 03/12/17 19:48 97.7 77 153/66 95 03/12/17 19:20 99.1 78 16 188/78 97 03/12/17 16:00 98.3 67 20 141/64 98 03/12/17 11:42 97.7 55 16 132/66 94 I/O 03/12/17 03/12/17 03/12/17 03/13/17 03/13/17 03/13/17 07:00 15:00 23:00 07:00 15:00 23:00 Intake Total 240 ml 240 ml 240 ml Output Total 10 ml Balance 230 ml 240 ml 240 ml Intake Oral 240 ml 240 ml 240 ml Output Drainage Total 10 ml # Voids 2 3 2 # Bowel Movements 0 0 0 Result Diagram: 03/12/17 0633 Imaging Last Impressions Knee X-Ray 03/10/17 0000 Signed Impressions: Service Date/Time: Friday, March 10, 2017 14:29 - CONCLUSION: Postoperative changes are noted left total knee arthroplasty. Benji Wilson MD Objective Remarks GENERAL: This is a well-nourished, well-developed patient, in no apparent distress. CARDIOVASCULAR: Regular rate and regular rhythm without murmurs, gallops, or rubs. RESPIRATORY: Clear to auscultation. Breath sounds equal bilaterally. No wheezes , rales, or rhonchi. GASTROINTESTINAL: Abdomen soft, non-tender, nondistended. Normal, active bowel sounds MUSCULOSKELETAL: left knee covered with clean dressing. NEURO: Alert & Oriented x4 to person, place, time, situation. Moves all ext x4 Medications and IVs Current Medications Lactated Ringer's 1,000 ml @ 30 mls/hr Q24H PRN IV SEE LABEL COMMENTS Last administered on 03/10/17 08:45; Start 03/10/17 at 08:30; Stop 03/10/17 at 13:50 ; Status DC Sodium Chloride (NS 500 ml Inj) 500 ml @ 30 mls/hr [id number] PRN IV SEE LABEL COMMENTS; Start 03/10/17 at 08:30; Stop 03/10/17 at 13:50; Status DC Metoprolol Tartrate (Lopressor) 25 mg S[employer]IOR ENGINEERING SPECIALIST PRN PO SEE LABEL COMMENTS; Start 03/10/17 at 08:30; Stop 03/10/17 at 13:50; Status DC Povidone Iodine (Betadine 5% Antisepsis Kit) 1 applic S[employer]IOR ENGINEERING SPECIALIST PRN EACH NARE SEE LABEL COMMENTS Last administered on 03/10/17 08:50; Start 03/10/17 at 08:30 ; Stop 03/10/17 at 13:50; Status DC Chlorhexidine Gluconate (Chlorhexidine 2% Cloth) 3 pack S[employer]IOR ENGINEERING SPECIALIST PRN TOPICAL SEE LABEL COMMENTS; Start 03/10/17 at 08:30; Stop 03/10/17 at 13:50; Status DC Insulin Human Regular (NovoLIN R INJ) See Protocol Table ... SENIOR ENGINEERING SPECIALIST PRN SQ SEE PROTOCOL TABLE; Start 03/10/17 at 08:30; Stop 03/10/17 at 13:50; Status DC Chlorhexidine Gluconate 1 applic 1 applic ONCE TOPICAL Last administered on 08:30; Start 03/10/17 at 08:30; Stop 03/10/17 at 13:50; Status DC Cefazolin Sodium/ Dextrose 50 ml @ 100 mls/hr S[employer]IOR ENGINEERING SPECIALIST IV Last administered on 03/10/17 10:43; Start 03/10/17 at 08:30; Stop 03/10/17 at 13:47; Status DC Tranexamic Acid 751 mg/Sodium Chloride 107.51 ml @ 200 mls/ hr ONCE IV Last administered on 03/10/17 10:44; Start 03/10/17 at 09:00; Stop 03/10/17 at 12:00 ; Status DC Tranexamic Acid 751 mg/Sodium Chloride 107.51 ml @ 200 mls/ hr ONCE IV Last administered on 03/10/17 13:45; Start 03/10/17 at 12:00; Stop 03/10/17 at 18:00 ; Status DC Bupivacaine Liposome 20 ml/ Sodium Chloride 100 ml @ 200 mls/hr ONCE P- ARTICULR Last administered on 03/10/17 11:00; Start 03/10/17 at 09:00; Stop at 12:00; Status DC Lactated Ringer's (Lr 1000 ml Inj) 1,000 ml @ 80 mls/hr [id number] IV Last administered on 03/10/17 13:44; Start 03/10/17 at 09:48 IV Flush (NS Flush) 2 ml UNSCH PRN IVF FLUSH AFTER USING IV ACCESS; Start 03/10 at 10:00 IV Flush 2 ml 2 ml BID IVF Last administered on 03/13/17 09:00; Start at 21:00 Cefazolin Sodium/ Sodium Chloride (Ancef Inj/NS Inj) 100 ml @ 200 mls/hr Q6H IV Last administered on 03/11/17 04:34; Start 03/10/17 at 16:00; Stop at 04:29; Status DC Miscellaneous Information (Post-op Orders (for Pharmacy)) STAT ONCE XX ; Start 03/10/17 at 10:00; Stop 03/10/17 at 13:45; Status DC Rivaroxaban (Xarelto) 10 mg Q24H PO Last administered on 03/12/17 11:51; Start 03/11/17 at 12:15 Morphine Sulfate (Morphine Inj) 4 mg Q3H PRN IV PUSH BREAKTHROUGH PAIN Last administered on 03/11/17 01:10; Start 03/10/17 at 10:00; Stop 03/12/17 at 14:55 ; Status DC Acetaminophen/ Hydrocodone Bitart ([facility] 7.5-325 Mg) 1 tab Q4H PRN PO PAIN SCALE 7-10; Start 03/10/17 at 10:00 Acetaminophen/ Hydrocodone Bitart ([place] 7.5-325 Mg) 2 tab Q4H PRN PO PAIN SCALE 5 TO 10 Last administered on 03/12/17 08:40; Start 03/10/17 at 10:00; Stop 03/12/17 at 14:53; Status DC Ketorolac Tromethamine 15 mg 15 mg Q6H IVP Last administered on 03/12/17 08:48 ; Start 03/10/17 at 14:00; Stop 03/12/17 at 08:01; Status DC Tranexamic Acid/ Sodium Chloride (Cyklokapron Inj/ NS Inj) 100 ml @ 200 mls/hr UNSCH IV ; Start 03/10/17 at 10:00; Stop 03/10/17 at 10:09; Status DC Ondansetron HCl (Zofran Inj) 4 mg Q6H PRN IVP NAUSEA OR VOMITING Last administered on 03/12/17 11:51; Start 03/10/17 at 10:00 Docusate Sodium (Colace) 100 mg BID PO Last administered on 03/13/17 09:22; Start 03/11/17 at 21:00 Zolpidem Tartrate (Ambien) 5 mg HS PRN PO SLEEP; Start 03/10/17 at 10:00 Magnesium Hydroxide (Milk Of Magnesia Liq) 30 ml DAILY PRN PO CONSTIPATION Last administered on 03/12/17 03:45; Start 03/10/17 at 10:00 Famotidine (Pepcid Inj) 20 mg STK-MED ONCE .ROUTE ; Start 03/10/17 at 10:01; Stop 03/10/17 at 10:02; Status DC Midazolam HCl (Versed Inj) 2 mg STK-MED ONCE .ROUTE ; Start 03/10/17 at 10:01; Stop 03/10/17 at 10:02; Status DC Dexamethasone Sodium Phosphate (Decadron Inj) 4 mg STK-MED ONCE .ROUTE ; Start 03/10/17 at 10:01; Stop 03/10/17 at 10:02; Status DC Acetaminophen (Ofirmev Inj) 1,000 mg STK-MED ONCE IV ; Start 03/10/17 at 10:01; Stop 03/10/17 at 10:02; Status DC Gentamicin Sulfate (Gentamicin Inj) 240 mg STK-MED ONCE IRRIGATION Last administered on 03/10/17 11:26; Start 03/10/17 at 11:26; Stop 03/10/17 at 11:29 ; Status DC Alprazolam (Xanax) 0.125 mg DAILY PO Last administered on 03/13/17 09:22; Start 03/11/17 at 09:00 Atenolol (Tenormin) 25 mg BID PO Last administered on 03/13/17 09:22; Start at 21:00 Fluoxetine HCl (PROzac) 20 mg DAILY PO Last administered on 03/13/17 09:22; Start 03/11/17 at 09:00 Losartan Potassium (Cozaar) 50 mg BID PO Last administered on 03/13/17 09:22; Start 03/10/17 at 21:00 Primidone (Mysoline) 50 mg HS PO Last administered on 03/12/17 21:19; Start at 21:00 Enalaprilat (Vasotec Inj) 1.25 mg Q8H PRN IV PUSH SBP> OR = 180, DBP> OR = 100 Last administered on 03/10/17 23:56; Start 03/10/17 at 14:00 Alprazolam (Xanax) 0.125 mg Q8HR PRN PO ANXIETY; Start 03/10/17 at 14:00 Miscellaneous (Pill Splitter) 1 ea UNSCH PRN OTHER SEE LABEL COMMENTS; Start at 15:00 Miscellaneous Information ALL NURSING DEPARTME... UNSCH PRN .XX SEE LABEL COMMENTS; Start 03/10/17 at 13:21; Stop 03/11/17 at 13:20; Status DC Nicotine (Habitrol 14 Mg Patch.24 Hr) 1 patch DAILY T-DERMAL Last administered on 03/13/17 09:00; Start 03/11/17 at 09:00 Miscellaneous Information 1 HS T-DERMAL Last administered on 03/11/17 19:51; Start 03/11/17 at 21:00 Tramadol HCl (Ultram) 50 mg Q4H PRN PO PAIN SCALE 1 TO 6 Last administered on 09:55; Start 03/12/17 at 15:30 A/P Assessment and Plan A/P - osteoarthritis- s/p left total knee arthroplasty continue with pain control and PT- management per ortho -hypertension; resumed home meds- Vasotec as needed -urinary frequency;UA not impressive -anxiety; resumed home meds -DVT prophylaxis with xarelto- per ortho Discharge Planning dc planning per ortho. Flako Frye MD Mar 13, 2017 11:04
[2017-03-13] MEDS: RIVAROXABAN 10 MG TAB PO SCH (12:13)
[2017-03-13] MEDS: MAGNESIUM HYDROXIDE SUSP 30 ML CUP PO PRN (12:16)
--- NOTE | 2017-04-21 09:16 | MD ---
cc: Serge PACHECO. ADMISSION DATE: 03/10/2017 DISCHARGE DATE: 03/13/2017 PREOPERATIVE DIAGNOSIS Primary osteoarthritis left knee. FINAL DIAGNOSIS Primary osteoarthritis left knee. OPERATION During the hospitalization a left total knee arthroplasty with [place] [employer] prosthesis (uncemented) on 03/10/2017. PRESENT ILLNESS This 66-year-old woman has had left knee pain reionso 2-1/2 years with progressive worsening and nonresponse to conservative measures as detailed in the history and physical examination and the operative report. Physical findings showed limitation of motion with crepitation on motion in the knee with tenderness on motion. X-rays showed significant arthritis going down to [id number] in the medial compartment with tricompartmental osteophytes. HOSPITAL COURSE The patient was admitted on 03/10/2017. She was taken to the clean-air operating suite where she had a spinal anesthetic and an adductor canal block. She then had a total knee arthroplasty carried out. She received prophylactic antibiotics in the form of Ancef as a prophylactic antibiotic according to protocol. She also received tranexamic acid to help with pain control. In the Post-Anesthesia Care Unit she was placed into a continuous passive motion device. She was started on physical therapy the day of surgery. She did not feel that she could put weight on the knee initially. She had pain and had dizziness from morphine. She walked two feet with therapy on the day of surgery. Her range of motion was -14 to 95 degrees. She remained afebrile. X-rays showed good position and alignment. By the second postoperative day she was doing better but was still somewhat concerned about mobility. She had nausea and dizziness and was able to walk 2 feet but was limited by this. Range of motion was 0 to 84 degrees. Maximum temperature was 99.5. Hemoglobin was 11.7. Discharge planning was initiated. By the third postoperative day she continued to do well. She had difficulty with her walker and apparently stepped away from it without holding on and slid to the floor in a controlled manner without any apparent injury the night before. Her range of motion was 0 to 90 degrees. She was able to walk with therapy 75 feet. Her maximum temperature was 99.8. Hemoglobin was 10.2 with hematocrit of 30.6. Arrangements were made for discharge home with home health care. She was switched from [place] to tramadol for discharge use. She was advised to listen to the physical therapist and other medical personnel, to follow directions correctly and to use the walker correctly. She should use the walker until she is cleared by the physical therapist for ambulation. She attended the class on the day of discharge and continued to have physical therapy during on the day of discharge. The patient was discharged home with home health care. She has a return appointment. MD YESENIA Ernst/BLESSING /10:10 AM /9:07 AM
== END 2017-03-13 13:55 | disposition home health service (06) | DRG 470 ==
LOC: HSDI 03-10 07:43 → N06A 03-10 15:40
PROVIDERS: ADMIT Orthopaedic Surgery; ATTEND Orthopaedic Surgery
PROC: 0SRD0JA Replacement of Left Knee Joint with Synthetic Substitute, Uncemented, Open Approach (ICD-10-PCS; principal; 2017-03-10 10:13)
DX: M17.12 Unilateral primary osteoarthritis, left knee (principal); I10 Essential (primary) hypertension; F41.9 Anxiety disorder, unspecified; R35.0 Frequency of micturition; F17.210 Nicotine dependence, cigarettes, uncomplicated
CPT/HCPCS: 73560; 81001; 85014; 85018; 86850; 86900; 86901; 94150; C1776; C9290; J0131; J0690; J1100; J1580; J1885; J2250; J2270; J2405; J7120

== ENCOUNTER → 2017-02-28 | Outpatient (CLI) | payer MEDICARE ==
[~2017-02-28] MED LIST: ACET-703 PO; ALPR0.25 PO; ATEN25TA PO; CALTTAB PO; CHLO500T13 PO; FLUO20CA4 PO; HYDR-3580 PO; LISI20; LOSA50TA PO; MULT1TAB84 PO; PRIM50TA5 PO; ROSU5 PO; ULTR50TA5 PO; VITA10002 PO; XARE10TA PO
[2017-02-28 08:57] LABS: HEMATOCRIT 43.7 % (35.0-46.0); MEAN CORPUSCULAR HEMOGLOBIN 28.8 PG (27.0-34.0); MEAN CORPUSCULAR HGB CONC 34.3 % (32.0-36.0); PLATELET COUNT 275 TH/MM3 (150-450); RED CELL DISTRIBUTION WIDTH 14.8 % (11.6-17.2); REVIEW FLAG FINAL; WHITE BLOOD COUNT 7.4 TH/MM3 (4.0-11.0)
[2017-02-28 09:03] LABS: APTT (PATIENT) 27.9 SEC (24.3-30.1); INTERNATIONAL NORMALIZED RATIO 0.9 RATIO; PROTHROMBIN TIME - PATIENT 10.3 SEC (9.8-11.6)
[2017-02-28 09:16] LABS: BLOOD, URINE TRACE (NEG); COMMENT (UR) CATH-CULT NOT IND; CULTURE IF INDICATED CATH CULTURE NOT IND; GLUCOSE,URINE NEG (NEG); KETONE, URINE NEG (NEG); NITRITE,URINE POS (NEG); PH, URINE 6.5 (5.0-8.5); SQUAMOUS EPITHELIAL CELL URINE 1 /hpf (0-5); URINE COLOR YELLOW (YELLW/STRAW)
[2017-02-28 09:36] LABS: BICARBONATE 27.6 MEQ/L (21.0-32.0); POTASSIUM 4.5 MEQ/L (3.5-5.1)
--- NOTE | 2017-02-28 16:59 | EKG ---
Date Performed: 02/28/2017 Time Performed: 08:29:42 PTAGE: 66 years EKG: Sinus rhythm MODERATE VOLTAGE CRITERIA FOR LVH, CONSIDER NORMAL VARIANT BORDERLINE ECG Compared to prior tracing no significant change PREVIOUS TRACING 10/24/08 [id number] DOCTOR: Aly Moreno Interpretating Date/Time 02/28/2017 16:57:08
== END ==
LOC: CPRE 08:06
PROVIDERS: ATTEND Orthopaedic Surgery
DX: Z01.810 Encounter for preprocedural cardiovascular examination (principal); Z01.812 Encounter for preprocedural laboratory examination; M17.12 Unilateral primary osteoarthritis, left knee; I10 Essential (primary) hypertension; M79.609 Pain in unspecified limb
CPT/HCPCS: 36415; 80048; 81001; 85027; 85610; 85730; 93005

== ENCOUNTER → 2017-04-21 | Outpatient (CLI) | payer MEDICARE ==
[~2017-04-21] MED LIST changes: -CHLO500T13 PO; -HYDR-3580 PO; -LISI20; -ROSU5 PO
== END ==
LOC: CLAB 08:24
PROVIDERS: ATTEND Psychiatry & Neurology Neurology
DX: R35.0 Frequency of micturition (principal); M17.12 Unilateral primary osteoarthritis, left knee
CPT/HCPCS: 36415; 82565; 84520